=== PATIENT | female | born 1940 | race Caucasian/White ===

== ENCOUNTER 2019-01-08 10:37 | Emergency (ER) | payer OTHER ==
[~2019-01-08] VITALS: Ht 170.2 cm; Wt 86.4 kg
[2019-01-08] MEDS ORDERED: VITAD1000 PO (11:03)
[2019-01-08] MEDS ORDERED: SENN-176 PO (11:03)
[2019-01-08] MEDS ORDERED: PANT40TA25 PO (11:03)
[2019-01-08] MEDS ORDERED: KDUR20 PO (11:03)
[2019-01-08] MEDS ORDERED: GABA-529 PO (11:03)
[2019-01-08] MEDS ORDERED: MULT1TAB70 PO (11:03)
[2019-01-08] MEDS ORDERED: LEVO88TA4 PO (11:03)
[2019-01-08] MEDS ORDERED: LORazepam 2 MG/ML VIAL IM ONE (11:45)
[2019-01-08 14:12] VITALS: BP 135/63
== END 2019-01-08 15:08 | disposition home or self-care (01) ==
LOC: EMS 10:41
DX: K94.23 Gastrostomy malfunction (principal); I11.0 Hypertensive heart disease with heart failure; I50.9 Heart failure, unspecified; K21.9 Gastro-esophageal reflux disease without esophagitis; E78.00 Pure hypercholesterolemia, unspecified; E03.9 Hypothyroidism, unspecified; Z88.0 Allergy status to penicillin
CPT/HCPCS: 74018; 96372; 99284; J2060